=== PATIENT | female | born 1985 | race Two or more races ===

== ENCOUNTER 2019-09-29 23:37 | Emergency (ER) | payer BC ==
[~2019-09-29] VITALS: Ht 165.1 cm; Wt 54.4 kg
[2019-09-30] MEDS ORDERED: ZOFRAN4 MG PO (01:17)
[2019-09-30] MEDS ORDERED: PEPCID40 MG PO (01:20)
== END 2019-09-30 02:37 ==
LOC: ER 23:37
DX: S00.83XA Contusion of other part of head, initial encounter (principal); K29.00 Acute gastritis without bleeding; W18.09XA Striking against other object with subsequent fall, initial encounter; Y93.89 Activity, other specified; Y92.59 Other trade areas as the place of occurrence of the external cause; Y99.8 Other external cause status